=== PATIENT | male | born 1945 | race Caucasian/White ===

== ENCOUNTER 2022-08-27 14:05 | Inpatient (IN) | payer OTHER ==
[~2022-08-27] VITALS: Ht 185.4 cm; Wt 120.5 kg
[~2022-08-27 14:05] MED LIST: GABA300 PO; LASIX40 MG PO; Prinivil10 MG PO
[2022-08-27 14:50] LABS: BASOPHILS ABSOLUTE AUTO 0.08 K/mm3 (0.00-0.23); BASOPHILS PERCENT AUTO 1 % (0-2); EOSINOPHILS ABSOLUTE AUTO 0.85 K/mm3 (0.00-0.68); EOSINOPHILS PERCENT AUTO 6 % (0-6); Hematocrit 37.7 % (37.0-53.0); Hemoglobin 12.3 g/dL (13.5-17.5); IMMATURE GRAN ABSOLUTE AUTO 0.08 K/mm3 (0.00-0.10); IMMATURE GRAN PERCENT AUTO 1 % (0-1); LYMPHOCYTES ABSOLUTE AUTO 1.28 K/mm3 (0.84-5.20); LYMPHOCYTES PERCENT AUTO 9 % (21-46); MONOCYTES ABSOLUTE AUTO 1.08 K/mm3 (0.16-1.47); MONOCYTES PERCENT AUTO 7 % (4-13); Mean Corpuscular HGB 28.9 pg (26.0-34.0); Mean Corpuscular HGB Conc 32.6 g/dL (31.5-36.5); Mean Corpuscular Volume 89 fL (80-100); Mean Platelet Volume 9.2 fL (9.1-12.4); NEUTROPHILS ABSOLUTE AUTO 11.55 K/mm3 (1.96-9.15); NEUTROPHILS PERCENT AUTO 78 % (41-73); Platelet Count 298 K/mm3 (150-400); RDW Coefficient Variation 13.6 % (11.7-14.2); RDW Standard Deviation 44.4 fL (35.1-46.3); Red Blood Cell Count 4.25 M/mm3 (4.30-5.90); White Blood Cell Count 14.92 K/mm3 (4.00-11.30)
[2022-08-27 15:03] LABS: Albumin, Blood 3.3 g/dL (3.4-5.0); Albumin/Globulin Ratio 0.9 (0.8-1.8); Bilirubin, Total 0.6 mg/dL (0.1-1.0); Bun/Creatinine Ratio 17.6 (12.0-20.0); Calcium, Blood 8.7 mg/dL (8.5-10.1); Creatinine, Blood 1.02 mg/dL (0.60-1.20); Globulin, Blood 3.8 g/dL (2.2-4.0); Potassium, Blood 4.1 mmol/L (3.5-5.5); Total Protein, Blood 7.1 g/dL (6.4-8.2)
[2022-08-27 17:09] LABS: Influenza A, PCR NEGATIVE (NEGATIVE); Influenza B, PCR NEGATIVE (NEGATIVE); Resp Syncytial Virus, PCR NEGATIVE (NEGATIVE); SARS-Cov-2 (COVID-19) PCR, MMC NEGATIVE (NEGATIVE)
--- NOTE | 2022-08-27 22:54 | NUR ---
PATIENT IS A NEW ADMIT ON DAY SHIFT AT SHIFT CHANGE. AXOX 4 ON ROOM AIR. 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 LARGE SCROTUM SWELLING. DENIES CHEST PAIN, SOB, AND N/V. PUREWICK PLACE AND PATIENT CLEANED AND BED LINENS CHANGED. WCTM.
[2022-08-28 02:45] VITALS: BP 135/71
[2022-08-28 04:24] LABS: BASOPHILS ABSOLUTE AUTO 0.08 K/mm3 (0.00-0.23); BASOPHILS PERCENT AUTO 0 % (0-2); EOSINOPHILS ABSOLUTE AUTO 0.43 K/mm3 (0.00-0.68); EOSINOPHILS PERCENT AUTO 2 % (0-6); Hematocrit 35.1 % (37.0-53.0); Hemoglobin 11.7 g/dL (13.5-17.5); IMMATURE GRAN ABSOLUTE AUTO 0.18 K/mm3 (0.00-0.10); IMMATURE GRAN PERCENT AUTO 1 % (0-1); LYMPHOCYTES ABSOLUTE AUTO 1.27 K/mm3 (0.84-5.20); LYMPHOCYTES PERCENT AUTO 6 % (21-46); MONOCYTES ABSOLUTE AUTO 1.62 K/mm3 (0.16-1.47); MONOCYTES PERCENT AUTO 7 % (4-13); Mean Corpuscular HGB 28.8 pg (26.0-34.0); Mean Corpuscular HGB Conc 33.3 g/dL (31.5-36.5); Mean Corpuscular Volume 87 fL (80-100); Mean Platelet Volume 9.2 fL (9.1-12.4); NEUTROPHILS PERCENT AUTO 84 % (41-73); Platelet Count 285 K/mm3 (150-400); RDW Coefficient Variation 13.7 % (11.7-14.2); RDW Standard Deviation 43.4 fL (35.1-46.3); Red Blood Cell Count 4.06 M/mm3 (4.30-5.90); White Blood Cell Count 22.18 K/mm3 (4.00-11.30)
--- NOTE | 2022-08-28 04:24 | NUR ---
SHIFT SUMMARY PATIENT HAD NO ACUTE CHANGES. AXO X4 AND ONE ASSIST TO BSC. KAW LEAVING HEARING AIDS AT HOME. PUREWICK IN PLACE WITH SWELLING OF SCROTUM. UMBILICAL HERNIA. DENIES CHEST PAIN, SOB, AND N/V. VSS/AFEBRILE. CBG 95. COOPERATIVE WITH CARE. CALL LIGHT IN REACH. BED IN LOWEST POSITION. WILL CONTINUE TO MONITOR UNTIL DAY SHIFT NURSE ASSUMES CARE.
[2022-08-28 04:53] LABS: Bun/Creatinine Ratio 15.6 (12.0-20.0); Calcium, Blood 8.4 mg/dL (8.5-10.1); Creatinine, Blood 0.83 mg/dL (0.60-1.20); Potassium, Blood 3.5 mmol/L (3.5-5.5)
[2022-08-28 07:58] VITALS: BP 125/64
--- NOTE | 2022-08-28 09:16 | NUR ---
Echocardiogram completed.
[2022-08-28 16:04] VITALS: BP 125/70
--- NOTE | 2022-08-28 18:08 | NUR ---
SHIFT SUMMARY PATIENT IS ALERT AND ORIENTED X3. PATIENT HAS HAD NO ACUTE EVENTS THIS SHIFT. VITAL SIGNS REVIEWED. PUREWICK IN PLACE DUE TO SWELLING OF SCROTUM. PATIENT HAS NOT COMPLAINED OF PAIN, NAUSEA, SOB OR VOMITTING THIS SHIFT. PATIENT IS PLEASENT AND COOPERATIVE WITH CARE. BED IN LOCKED AND LOWEST POSITION. CALL LIGHT IN PLACE. WILL MONITOR UNTIL SHIFT CHANGE. WILL MONITOR UNTIL SHIFT CHANGE.
[2022-08-28 19:53] VITALS: BP 123/64
[2022-08-29 02:26] VITALS: BP 117/68
--- NOTE | 2022-08-29 05:23 | NUR ---
SUMMARY: NO ACUTE EVENTS OVERNIGHT. PATIENT EDUCATED TO CALL STAFF WHEN HE FEELS HIS BRIEF IS SOILED SO STAFF CAN CHANGE IMMEDIATELY TO PREVENT SKIN BREAKDOWN. PATIENT AOX4. VSS. IV ABX GIVEN. CALL LIGHT IN REACH.
--- NOTE | 2022-08-29 07:17 | NUR ---
ASSUMED CARE: PT RESTING QUIETLY IN BED DURING BEDSIDE REPORT. ON RA, NO TELE. NO ACUTE NEEDS AT THIS TIME.
[2022-08-29 07:50] VITALS: BP 119/65
[2022-08-29] MEDS ORDERED: ATOR20 PO (10:28)
[2022-08-29] MEDS ORDERED: DOXA4 PO (10:28)
[2022-08-29] MEDS ORDERED: AMOCLA600S (10:29)
--- NOTE | 2022-08-29 11:09 | NUR ---
PT GIVEN INSTRUCTIONS REGARDING FOLLOW UP APPOINTMENTS AND MEDICATIONS. [facility] MED[facility] PER [facility] REQUEST. IV DC'D WNL. PT TRANSPORTED OUT VIA WHEELCHAIR BY HOSPITAL STAFF. DENIED FURTHER QUESTIONS OR CONCERNS.
== END 2022-08-29 10:56 | disposition home or self-care (01) | DRG 727 ==
LOC: ER 14:05 → MEDS 17:33
PROVIDERS: Emergency Medicine; Physician Assistant; ADMIT Hospitalist
DX: N49.2 Inflammatory disorders of scrotum (principal); I50.33 Acute on chronic diastolic (congestive) heart failure; I11.0 Hypertensive heart disease with heart failure; Z20.822 Contact with and (suspected) exposure to COVID-19; Z28.21 Immunization not carried out because of patient refusal; N40.0 Benign prostatic hyperplasia without lower urinary tract symptoms; B35.1 Tinea unguium; K42.9 Umbilical hernia without obstruction or gangrene; J43.9 Emphysema, unspecified; M10.9 Gout, unspecified; N43.3 Hydrocele, unspecified; J84.10 Pulmonary fibrosis, unspecified; E78.5 Hyperlipidemia, unspecified; Z87.891 Personal history of nicotine dependence; Z79.899 Other long term (current) drug therapy
CPT/HCPCS: 0241U; 36415; 71046; 71260; 76870; 80048; 80053; 82947; 83036; 83605; 83690; 83880; 84484; 85025; 87040; 93005; 93010; 93306; 96365; 96366; 96375; 99285-25; A9270; J1650; J1815; J1940; J3370; J7050; Q9967

== ENCOUNTER 2022-11-17 12:14 | Inpatient (IN) | payer OTHER ==
[~2022-11-17] VITALS: Ht 185.4 cm; Wt 116.4 kg
[2022-11-17] VITALS (18 sets, daily range): BP systolic 77–132; BP diastolic 42–90
[~2022-11-17 12:14] MED LIST changes: +AMOCLA600S; +ATOR20 PO; +DOXA4 PO
[2022-11-17] MEDS ORDERED: Prinivil10 MG PO (12:48)
[2022-11-17] MEDS ORDERED: MULVITA PO (12:49)
[2022-11-17] MEDS ORDERED: OMEP20ER PO (12:49)
[2022-11-17] MEDS ORDERED: POTA10T PO (12:49)
[2022-11-17 13:08] LABS: Albumin, Blood 2.7 g/dL (3.4-5.0); Albumin/Globulin Ratio 0.9 (0.8-1.8); Bilirubin, Total 0.6 mg/dL (0.1-1.0); Calcium, Blood 8.6 mg/dL (8.5-10.1); Creatinine, Blood 1.16 mg/dL (0.60-1.20); Globulin, Blood 3.1 g/dL (2.2-4.0); Hematocrit 36.2 % (37.0-53.0); Hemoglobin 12.8 g/dL (13.5-17.5); Magnesium, Blood 2.1 mg/dL (1.6-2.4); Mean Corpuscular HGB 29.5 pg (26.0-34.0); Mean Corpuscular HGB Conc 35.4 g/dL (31.5-36.5); Mean Corpuscular Volume 83 fL (80-100); Mean Platelet Volume 10.6 fL (9.1-12.4); Platelet Count 100 K/mm3 (150-400); Potassium, Blood 4.3 mmol/L (3.5-5.5); RDW Coefficient Variation 14.1 % (11.7-14.2); Red Blood Cell Count 4.34 M/mm3 (4.30-5.90); Total Protein, Blood 5.8 g/dL (6.4-8.2); White Blood Cell Count 2.79 K/mm3 (4.00-11.30)
[2022-11-17 13:56] LABS: BAND PERCENT MAN 9 % (0-8); BASOPHILS PERCENT MAN 0 % (0-2); EOSINOPHILS ABSOLUTE MAN 0.05 K/mm3 (0.00-0.68); EOSINOPHILS PERCENT MAN 2 % (0-6); LYMPHOCYTES % ATYPICAL MANUAL 1 % (0-0); LYMPHOCYTES ABSOLUTE MAN 0.92 K/mm3 (0.84-5.20); LYMPHOCYTES PERCENT MAN 32 % (21-46); METAMYELOCYTE ABSOLUTE MAN 0.02 K/mm3 (0.00-0.00); METAMYELOCYTE PERCENT MAN 1 % (0-0); MONOCYTES ABSOLUTE MAN 0.11 K/mm3 (0.16-1.47); MONOCYTES PERCENT MAN 4 % (4-13); NEUTROPHILS ABSOLUTE MAN 1.67 K/mm3 (1.96-9.15); SEG NEUTROPHILS PERCENT MAN 51 % (41-73); TOTAL CELLS COUNTED 100
[2022-11-17 14:17] LABS: Adenovirus Not Detected (NOT DETECT); Bordetella pertussis Not Detected (NOT DETECT); Chlamydophila pneumoniae Not Detected (NOT DETECT); Coronavirus 229E Not Detected (NOT DETECT); Coronavirus HKU1 Not Detected (NOT DETECT); Coronavirus NL63 Not Detected (NOT DETECT); Coronavirus OC43 Not Detected (NOT DETECT); Human Metapneumovirus Not Detected (NOT DETECT); Human Rhinovirus/Enterovirus Not Detected (NOT DETECT); Influenza A/2009-H1 Not Detected (NOT DETECT); Influenza A/H1 Not Detected (NOT DETECT); Influenza A/H3 Not Detected (NOT DETECT); Influenza B Not Detected (NOT DETECT); Mycoplasma pneumoniae Not Detected (NOT DETECT); Parainfluenza Virus 1 Not Detected (NOT DETECT); Parainfluenza Virus 2 Not Detected (NOT DETECT); Parainfluenza Virus 3 Not Detected (NOT DETECT); Parainfluenza Virus 4 Not Detected (NOT DETECT); Respiratory Syncytial Virus Not Detected (NOT DETECT); SARS-Cov-2 (COVID-19), BioFire Not Detected (NOT DETECT)
--- NOTE | 2022-11-17 16:34 | NUR ---
ADMISSION: Pt arrived to ICU with levophed running through right forearm PIV at 7. Pt alert and oriented x 4; ROSADO. Reports mild persistant lower abdominal pain that has been present for that last month.
--- NOTE | 2022-11-17 19:47 | NUR ---
ASSUMED CARE PT IS A&O X4; SPO2 >92% ON RA; MAP >65 W/ LEVOPHED TITRATING (SEE FLOWSHEET); HR VARIABLE IN THE 90-100'S. PT DENIES SOB OR NAUSEA; STATES HE HAS SOME MINOR CP WHEN HE ATTEMPTS TO BREATHE REALLY DEEP, WILL CONTINUE TO MONITOR. PT WAS ABLE TO GET OUT OF CHAIR INTO BED W/ NO ASSISTANCE; STATED HE FELT A LITTLE UNSTEADY, BUT OTHERWISE OK. ABDOMINAL PAIN IS STILL PRESENT.
[2022-11-18] VITALS (63 sets, daily range): BP systolic 77–123; BP diastolic 32–102
[2022-11-18 03:41] LABS: BASOPHILS ABSOLUTE AUTO 0.04 K/mm3 (0.00-0.23); BASOPHILS PERCENT AUTO 1 % (0-2); EOSINOPHILS ABSOLUTE AUTO 0.09 K/mm3 (0.00-0.68); EOSINOPHILS PERCENT AUTO 3 % (0-6); Hemoglobin 12.8 g/dL (13.5-17.5); IMMATURE GRAN PERCENT AUTO 3 % (0-1); LYMPHOCYTES ABSOLUTE AUTO 1.07 K/mm3 (0.84-5.20); LYMPHOCYTES PERCENT AUTO 36 % (21-46); MONOCYTES ABSOLUTE AUTO 0.38 K/mm3 (0.16-1.47); MONOCYTES PERCENT AUTO 13 % (4-13); Mean Corpuscular HGB 29.2 pg (26.0-34.0); Mean Corpuscular HGB Conc 34.6 g/dL (31.5-36.5); Mean Corpuscular Volume 84 fL (80-100); Mean Platelet Volume 11.1 fL (9.1-12.4); NEUTROPHILS ABSOLUTE AUTO 1.33 K/mm3 (1.96-9.15); NEUTROPHILS PERCENT AUTO 44 % (41-73); Platelet Count 110 K/mm3 (150-400); RDW Standard Deviation 43.7 fL (35.1-46.3); Red Blood Cell Count 4.39 M/mm3 (4.30-5.90); White Blood Cell Count 3.01 K/mm3 (4.00-11.30)
[2022-11-18 03:59] LABS: Albumin, Blood 2.5 g/dL (3.4-5.0); Albumin/Globulin Ratio 0.8 (0.8-1.8); Bilirubin, Total 0.5 mg/dL (0.1-1.0); Bun/Creatinine Ratio 19.4 (12.0-20.0); Calcium, Blood 8.5 mg/dL (8.5-10.1); Creatinine, Blood 1.03 mg/dL (0.60-1.20); Globulin, Blood 3.2 g/dL (2.2-4.0); Potassium, Blood 4.1 mmol/L (3.5-5.5); Total Protein, Blood 5.7 g/dL (6.4-8.2)
--- NOTE | 2022-11-18 05:08 | NUR ---
SHIFT SUMMARY PT IS A&O X4; MAP >65; SPO2 >92% ON CPAP (FOR MOST OF NIGHT); HR IN THE 80-90'S. PT DENIES CP, SOB, OR NAUSEA. WORE CPAP FOR MOST OF NIGHT W/ INTERMITTENT DESATURATIONS INTO THE 80'S FOR A FEW SECONDS AT A TIME. 2L BLEED IN ON CPAP. PT ON RA WHILE AWAKE. PT DENIES CP, SOB, OR NAUSEA AT THIS TIME. STATES ABDOMINAL PAIN HAS GOTTEN BETTER T/O NIGHT. PT REMAINS ON LEVOPHED TO MAINTAIN >65 MAP. PT RESTED QUIETLY T/O MOST OF NIGHT. NO ACUTE EVENTS.
--- NOTE | 2022-11-18 07:00 | NUR ---
ASSUME CARE: I have assumed care of this patient.
[2022-11-18 10:43] LABS: C-REACTIVE PROTEIN, EXT RANGE 4.41 mg/dL (0.000-0.300)
--- NOTE | 2022-11-18 14:30 | NUR ---
SHIFT/TRANSFER SUMMERY: Pt started on midodrine this morning and levophed successfully titrated off. MAPs have been stable >65 throughout the day. Pt using urinal independently. BM this morning on bedside commode. Pt transfers with standby assist. Report given to BEAD MACHINE OPERATOR. Pt transferred to PCU room by ENROLLMENT MANAGEMENT MANAGER via wheelchair. Spouse called for update but no answer.
--- NOTE | 2022-11-18 14:58 | NUR ---
TRANSFER UPDATE REPORT RECIEVED FROM DIRECTOR OF PLACEMENTTREE BROWN AT 1419. PT ARRIVED TO PCU AT 1430 VIA WHEELCHAIR AND ON RA. PT ABLE TO TRANSFER FROM WHEELCHAIR TO HOSPITAL BED WITH SOME ASSISTANCE FROM STAFF, UNSTEADY ON HIS FEET. PT A/OX4 UPON ARRIVAL TO UNIT. NO REPORT OF CHEST PAIN/PRESSURE. NO REPORT OF SOB/DYSPNEA. PT DOES REPORT "ACID BURN IN MY ESOPHAGUS WHEN I TAKE DEEP BREATHS." PT STATED THAT IT IS BECAUSE OF HIS "GERD." VSS AT TIME OF ARRIVAL. PT ORIENTED TO ROOM AND CALL LIGHT WITHIN REACH. BED IN LOWEST POSITION, BED LOCKED. THS RN ATTEMPTED TO CONTACT PT'S TO UPDATE THAT THE PT WAS TRANSFERED TO PCU, NO ANSWER.
--- NOTE | 2022-11-18 17:45 | NUR ---
SHIFT SUMMARY PT A/OX4 AND COOPERATIVE OF CARE. VSS SINCE ARRIVAL TO UNIT, NO REPORT OF CHEST PAIN/PRESSURE SINCE ARRIVAL TO UNIT. PT UPDATED ON TRANSFER TO PCU. PT CALLING APPROPIATELY AND USING URINAL WHILE IN BED. PT REPORTS "ACID BURNING" OF ESOPHAGUS. PT SLEPT FOR BRIEF PERIOD, SATS DROPPED TO 81% DURING APNEIC PERIOD. PT PLACE ON CPAP, SATS STABLE.
[2022-11-19 04:10] LABS: Hematocrit 40.1 % (37.0-53.0); Hemoglobin 13.7 g/dL (13.5-17.5); Mean Corpuscular HGB 28.7 pg (26.0-34.0); Mean Corpuscular HGB Conc 34.2 g/dL (31.5-36.5); Mean Corpuscular Volume 84 fL (80-100); Mean Platelet Volume 10.8 fL (9.1-12.4); Platelet Count 122 K/mm3 (150-400); RDW Coefficient Variation 14.1 % (11.7-14.2); RDW Standard Deviation 43.5 fL (35.1-46.3); Red Blood Cell Count 4.77 M/mm3 (4.30-5.90)
[2022-11-19 04:35] LABS: Albumin, Blood 2.6 g/dL (3.4-5.0); Albumin/Globulin Ratio 0.8 (0.8-1.8); Bilirubin, Total 0.5 mg/dL (0.1-1.0); Bun/Creatinine Ratio 17.9 (12.0-20.0); Calcium, Blood 8.4 mg/dL (8.5-10.1); Creatinine, Blood 0.95 mg/dL (0.60-1.20); Globulin, Blood 3.4 g/dL (2.2-4.0); Potassium, Blood 3.7 mmol/L (3.5-5.5)
--- NOTE | 2022-11-19 05:14 | NUR ---
Assumed care of patient at 1900, A/Ox4. Cooperative with care. SAXMAN. Maintains over 95% on RA while awake, and CPAP with 2L bleed while asleep - however still has brief desaturations into low 80's but recovers quickly. LS clear on top and dim at bases. Afib on tele 90's. Denies CP/pressure, VSS. LLE with 1+ pitting edema and RLE with trace. Mild abdominal distention that is tender to the touch. Bowel tones noted t/o 4 quadrants. Patient wore CPAP most of the night and had no complaints. No acute changes. Will report to dayshift RN.
[2022-11-19 08:00] VITALS: BP 109/78
--- NOTE | 2022-11-19 08:22 | NUR ---
AM NOTE Pt alert, oriented x4; calm and cooperative with care. Pt resting in bed, on side of bed for breakfast this am. Pt denies pain, chest pain/pressure, nausea, dizziness and numb/tingling. Spo2 >90% on ra while awake, pt reports sob with movement. Tele afib 100-120's while moving, bp stable with midodrine onboard. Abd firm, tender with hypoactive bt. Edema noted to ble, 1+. Other vss. No other acute chagnes noted. Will continue to monitor.
[2022-11-19 11:49] VITALS: BP 120/87
[2022-11-19] MEDS ORDERED: BUME2 PO (12:09)
[2022-11-19] MEDS ORDERED: MIDO5 PO (12:10)
[2022-11-19] MEDS ORDERED: POTA10T PO (12:11)
[2022-11-19] MEDS ORDERED: CEFU500T30 PO (13:03)
[2022-11-19] MEDS ORDERED: VISBIOME 112.51 EACH PO (13:05)
[2022-11-19] MEDS ORDERED: FAMO20 PO (13:06)
[2022-11-19 13:43] VITALS: BP 116/98
--- NOTE | 2022-11-19 14:25 | NUR ---
Discharge Summary No acute changes t/o shift. Pt expressing desire to go home. Discharge orders with medications. Fax to [facility]. Pt and spouse educated on discharge instructions, follow up appointments and medications changes. Educated pt and spouse to remove the discontinued medications away from the one he will be taking. Discussed tracking BP and HR, bringing into dr office for appointment. Pt left room via wheelchair at approx 1402.
== END 2022-11-19 14:03 | disposition home or self-care (01) | DRG 291 ==
LOC: ER 12:14 → ICUE 15:20 → PCU 15:20 → ICUE 16:32 → PCU 11-18 14:33
PROVIDERS: Student in an Organized Health Care Education/Training Program; ADMIT Internal Medicine
PROC: 3E033XZ Introduction of Vasopressor into Peripheral Vein, Percutaneous Approach (ICD-10-PCS; principal; 2022-11-17)
DX: I11.0 Hypertensive heart disease with heart failure (principal); I50.31 Acute diastolic (congestive) heart failure; J96.91 Respiratory failure, unspecified with hypoxia; N17.9 Acute kidney failure, unspecified; E87.1 Hypo-osmolality and hyponatremia; I95.9 Hypotension, unspecified; I48.91 Unspecified atrial fibrillation; M10.9 Gout, unspecified; N40.0 Benign prostatic hyperplasia without lower urinary tract symptoms; F10.90 Alcohol use, unspecified, uncomplicated; Z20.822 Contact with and (suspected) exposure to COVID-19; R59.0 Localized enlarged lymph nodes; I27.20 Pulmonary hypertension, unspecified; J84.10 Pulmonary fibrosis, unspecified; E11.40 Type 2 diabetes mellitus with diabetic neuropathy, unspecified; K59.00 Constipation, unspecified; J20.9 Acute bronchitis, unspecified; K42.9 Umbilical hernia without obstruction or gangrene; K29.70 Gastritis, unspecified, without bleeding; I50.810 Right heart failure, unspecified; B35.1 Tinea unguium; Z79.2 Long term (current) use of antibiotics; Z98.890 Other specified postprocedural states; Z90.49 Acquired absence of other specified parts of digestive tract; Z79.4 Long term (current) use of insulin; Z87.891 Personal history of nicotine dependence; Z79.899 Other long term (current) drug therapy
CPT/HCPCS: 0202U; 36415; 71260; 74176; 80053; 82947; 83605; 83690; 83735; 83880; 84145; 84484; 85025; 85027; 85651; 86140; 87081; 87430; 93005; 93010; 93308; 93321; 94660; 94762; 96365; 96366; 96368; 96375; 99285-25; A9270; C9113; J0692; J0696; J1650; J1940; J7050; J7060; Q9967

== ENCOUNTER 2024-01-21 21:03 | Emergency (ER) | payer OTHER ==
[~2024-01-21] VITALS: Ht 185.4 cm; Wt 107.0 kg
[~2024-01-21 21:03] MED LIST changes: +ACET500 PO; +AEREDS PO; +ASPI81CH PO; +BUME2 PO; +CARAFATE1 GM PO; +CEFU500T30 PO; +ELIQUIS5 M2 PO; +FAMO20 PO; +FURO40 PO; +GABA300T24 PO; +Lopressor 50 mg50 MG PO; +MIDO5 PO; +MULVITA PO; +OMEP20ER PO; +OXYC5 PO; +PANT40 PO; +POTA10T PO; +VISBIOME 112.51 EACH PO; +VITA PO; +VITAMIN A PO; +VITAMIN D310 MC4 PO; +ZINC PO
[2024-01-21 21:37] LABS: BASOPHILS ABSOLUTE AUTO 0.08 K/mm3 (0.00-0.23); BASOPHILS PERCENT AUTO 1 % (0-2); EOSINOPHILS ABSOLUTE AUTO 0.72 K/mm3 (0.00-0.68); EOSINOPHILS PERCENT AUTO 7 % (0-6); Hematocrit 29.2 % (37.0-53.0); Hemoglobin 9.2 g/dL (13.5-17.5); IMMATURE GRAN ABSOLUTE AUTO 0.03 K/mm3 (0.00-0.10); IMMATURE GRAN PERCENT AUTO 0 % (0-1); LYMPHOCYTES ABSOLUTE AUTO 1.84 K/mm3 (0.84-5.20); LYMPHOCYTES PERCENT AUTO 18 % (21-46); MONOCYTES ABSOLUTE AUTO 0.65 K/mm3 (0.16-1.47); MONOCYTES PERCENT AUTO 6 % (4-13); Mean Corpuscular HGB Conc 31.5 g/dL (31.5-36.5); Mean Corpuscular Volume 83 fL (80-100); Mean Platelet Volume 8.9 fL (9.1-12.4); NEUTROPHILS ABSOLUTE AUTO 6.78 K/mm3 (1.96-9.15); NEUTROPHILS PERCENT AUTO 67 % (41-73); Platelet Count 430 K/mm3 (150-400); RDW Coefficient Variation 16.9 % (11.7-14.2); RDW Standard Deviation 50.4 fL (35.1-46.3); Red Blood Cell Count 3.54 M/mm3 (4.30-5.90)
[2024-01-21 21:54] LABS: Albumin, Blood 3.1 g/dL (3.4-5.0); Albumin/Globulin Ratio 0.9 (0.8-1.8); Bilirubin, Total 0.7 mg/dL (0.1-1.0); Bun/Creatinine Ratio 14.1 (12.0-20.0); Calcium, Blood 8.9 mg/dL (8.5-10.1); Globulin, Blood 3.4 g/dL (2.2-4.0); Potassium, Blood 3.9 mmol/L (3.5-5.5); Total Protein, Blood 6.5 g/dL (6.4-8.2)
[2024-01-21] MEDS ORDERED: FentaNYL Citrate 50 MCG/ML 2 ML Injection IV PRN (23:15)
[2024-01-21] MEDS ORDERED: NS 1,000 ML IV SCH (23:55)
[2024-01-22 02:45] VITALS: BP 132/90
[2024-01-22 03:11] LABS: Source, Urine Clean Catch
[2024-01-22 03:13] LABS: Bilirubin, Urine Neg (Neg); Blood, Urine Neg (Neg); Glucose Qualitative, Urine Neg (Neg); Ketones, Urine Neg (Neg); Leukocyte Esterase, Urine 1+ (Neg); Nitrite, Urine Neg (Neg); Protein, Urine 2+ (Neg); Urobilinogen, Urine NORM (Normal)
[2024-01-22 03:25] LABS: Appearance, Urine Clear (Clear); Bacteria Rare /hpf; Color, Urine Yellow (P-Yellow); Red Blood Cells, Urine Not Seen /hpf (0-2); Squamous Epithelial Cells Few /hpf (Few); White Blood Cells, Urine 0-2 /hpf (0-5)
== END 2024-01-22 05:20 | disposition home or self-care (01) ==
LOC: ER 21:03
PROVIDERS: Physician Assistant
DX: K42.9 Umbilical hernia without obstruction or gangrene (principal); E86.0 Dehydration; I11.0 Hypertensive heart disease with heart failure; I50.9 Heart failure, unspecified; Z79.899 Other long term (current) drug therapy
CPT/HCPCS: 51798; 74177; 80053; 81001; 83605; 83690; 84484; 85025; 93005; 93010; 96374-59; 99284-25; J3010; J7030; Q9967

== ENCOUNTER 2024-01-25 11:58 | Inpatient (IN) | payer OTHER ==
[~2024-01-25] VITALS: Ht 185.4 cm; Wt 99.9 kg
[2024-01-25] MEDS ORDERED: Morphine Sulfate 4 MG/1 ML Injection IV ONE (12:35)
[2024-01-25] MEDS ORDERED: Ondansetron HCl 2 MG / ML 2ML Vial IV ONE (12:35)
[2024-01-25 12:42] LABS: BASOPHILS ABSOLUTE AUTO 0.03 K/mm3 (0.00-0.23); BASOPHILS PERCENT AUTO 0 % (0-2); EOSINOPHILS ABSOLUTE AUTO 0.12 K/mm3 (0.00-0.68); EOSINOPHILS PERCENT AUTO 1 % (0-6); Hematocrit 33.7 % (37.0-53.0); Hemoglobin 10.5 g/dL (13.5-17.5); IMMATURE GRAN ABSOLUTE AUTO 0.02 K/mm3 (0.00-0.10); IMMATURE GRAN PERCENT AUTO 0 % (0-1); LYMPHOCYTES ABSOLUTE AUTO 1.82 K/mm3 (0.84-5.20); LYMPHOCYTES PERCENT AUTO 20 % (21-46); MONOCYTES ABSOLUTE AUTO 0.97 K/mm3 (0.16-1.47); MONOCYTES PERCENT AUTO 11 % (4-13); Mean Corpuscular HGB 25.5 pg (26.0-34.0); Mean Corpuscular HGB Conc 31.2 g/dL (31.5-36.5); Mean Corpuscular Volume 82 fL (80-100); NEUTROPHILS ABSOLUTE AUTO 6.18 K/mm3 (1.96-9.15); NEUTROPHILS PERCENT AUTO 68 % (41-73); Platelet Count 429 K/mm3 (150-400); RDW Coefficient Variation 16.5 % (11.7-14.2); RDW Standard Deviation 49.5 fL (35.1-46.3); Red Blood Cell Count 4.11 M/mm3 (4.30-5.90); White Blood Cell Count 9.14 K/mm3 (4.00-11.30)
[2024-01-25 13:02] LABS: Albumin, Blood 3.1 g/dL (3.4-5.0); Albumin/Globulin Ratio 0.9 (0.8-1.8); Bilirubin, Total 0.8 mg/dL (0.1-1.0); Bun/Creatinine Ratio 15.1 (12.0-20.0); Creatinine, Blood 0.73 mg/dL (0.60-1.20); Globulin, Blood 3.5 g/dL (2.2-4.0); Potassium, Blood 3.6 mmol/L (3.5-5.5); Total Protein, Blood 6.6 g/dL (6.4-8.2)
[2024-01-25 14:30] LABS: International Normalized Ratio 1.06; Prothrombin Time Results 11.3 Sec (9.7-11.5)
[2024-01-25] MEDS ORDERED: Acetaminophen 325 MG TABLET PO PRN (16:25)
[2024-01-25] MEDS ORDERED: FentaNYL Citrate 50 MCG/ML 2 ML Injection IV PRN (16:30)
[2024-01-25] MEDS ORDERED: Pantoprazole Sodium 40 MG Injection IV SCH (16:30)
[2024-01-25] MEDS ORDERED: Ondansetron HCl 2 MG / ML 2ML Vial IV PRN (16:30)
[2024-01-25] MEDS ORDERED: Sucralfate 1000MG / 10ML UD BTL PO SCH (16:30)
[2024-01-25 19:02] VITALS: BP 100/65
[2024-01-25] MEDS ORDERED: Metoprolol Tartrate 50 MG Tab PO SCH (21:00)
[2024-01-26 03:58] VITALS: BP 88/65
[2024-01-26 05:10] LABS: BASOPHILS ABSOLUTE AUTO 0.05 K/mm3 (0.00-0.23); BASOPHILS PERCENT AUTO 1 % (0-2); EOSINOPHILS ABSOLUTE AUTO 0.52 K/mm3 (0.00-0.68); EOSINOPHILS PERCENT AUTO 7 % (0-6); Hematocrit 29.7 % (37.0-53.0); Hemoglobin 9.3 g/dL (13.5-17.5); IMMATURE GRAN ABSOLUTE AUTO 0.02 K/mm3 (0.00-0.10); IMMATURE GRAN PERCENT AUTO 0 % (0-1); LYMPHOCYTES PERCENT AUTO 26 % (21-46); MONOCYTES ABSOLUTE AUTO 0.78 K/mm3 (0.16-1.47); MONOCYTES PERCENT AUTO 11 % (4-13); Mean Corpuscular HGB 25.5 pg (26.0-34.0); Mean Corpuscular HGB Conc 31.3 g/dL (31.5-36.5); Mean Corpuscular Volume 82 fL (80-100); Mean Platelet Volume 9.1 fL (9.1-12.4); NEUTROPHILS ABSOLUTE AUTO 3.81 K/mm3 (1.96-9.15); NEUTROPHILS PERCENT AUTO 55 % (41-73); Platelet Count 346 K/mm3 (150-400); RDW Coefficient Variation 16.4 % (11.7-14.2); RDW Standard Deviation 48.5 fL (35.1-46.3); Red Blood Cell Count 3.64 M/mm3 (4.30-5.90); White Blood Cell Count 6.98 K/mm3 (4.00-11.30)
--- NOTE | 2024-01-26 05:27 | NUR ---
PATIENT EXHAUSTED TONIGHT, SLEPT WELL WITH OUR CPAP ON, ABD PAIN NEARLY GONE. HAS NOT BEEN UP TO BR, NOR VOIDED.SCD'S TO BLE. TELE A FIB BP HELD AT 2100 D/T LOW BP. BP EVEN LOWER AT 0400.
[2024-01-26 05:48] LABS: Bun/Creatinine Ratio 14.2 (12.0-20.0); Calcium, Blood 8.2 mg/dL (8.5-10.1); Creatinine, Blood 0.77 mg/dL (0.60-1.20); Potassium, Blood 3.5 mmol/L (3.5-5.5)
[2024-01-26 07:24] VITALS: BP 98/64
[2024-01-26 08:38] VITALS: BP 105/77
[2024-01-26] MEDS ORDERED: Midodrine 5 MG Tab PO ONE (08:45)
--- NOTE | 2024-01-26 08:55 | NUR ---
PHYSICIAN NOTIFIED CALL FROM TELE THAT PATIENT IS IN AFIB SUSTAINING 130-140'S, WITH HR HIGH 160'S. VS RECHECKED DUE TO LOW BP THIS AM, BP NOW 105/77. DR. GARZA NOTIFIED. ORDES TO GIVE METOPROLOL WITH ONE TIME DOSE OF 5MG PO MIDODRINE. PRIMARY RN NOTIFIED OF ORDERS.
--- NOTE | 2024-01-26 09:51 | NUR ---
RECONCILED MEDS. UPDATED
[2024-01-26] MEDS ORDERED: Atorvastatin 10 MG Tab PO SCH (10:58)
[2024-01-26] MEDS ORDERED: Furosemide 40 MG Tab PO SCH (11:00)
[2024-01-26] MEDS ORDERED: Midodrine 5 MG Tab PO SCH (11:01)
[2024-01-26] MEDS ORDERED: Potassium Chloride 10 Meq Tablet SA PO SCH (11:01)
[2024-01-26 11:21] VITALS: BP 96/73
--- NOTE | 2024-01-26 11:50 | NUR ---
PER DISCUSSION WITH DR GARZA. HOLD LASIX R/T BP. GIVE MIDODRINE. 96/72 BP
[2024-01-26] MEDS ORDERED: Gabapentin 400 MG Cap PO SCH (14:00)
--- NOTE | 2024-01-26 14:52 | NUR ---
PT STATES ABD WORSE PAIN. STILL 3 HRS FROM LAST DOSE FENTANYL. GAVE TYLENOL. SPOKE TO DR GARZA. ORDERS FOR FENTANYL 25MCG X1. NOW. DONE
[2024-01-26] MEDS ORDERED: FentaNYL Citrate 50 MCG/ML 2 ML Injection IV ONE (14:55)
--- NOTE | 2024-01-26 15:00 | NUR ---
PT STATES HAS EMESIS ABOUT 200 CC SINCE LUNCHTIME. REPORT TO
[2024-01-26 15:10] VITALS: BP 111/85
--- NOTE | 2024-01-26 18:07 | NUR ---
PT PLEASANT TODAY. IN TO VISIT TODAY. PATIENT STATES INCREASED PAIN TODAY. GOT EXTRA DOSE FENTANYL TODAY. CALLED DR GONGORA. HE IN TO SEE PT THIS BOBBY. HERNIA IS PROTRUDING OUT SOME, THAT APPERAS TO BE CENTER OF PAIN. NO NG TUBE NEEDED AT THIS TIME PER DR GONGORA. IF PAIN BECOMES INOLERABLE THIS BOBBY. COULD TO EMERGENT SURGERY, IF NOT, PLAN FOR TOMORROW. DR ORDER CT ABD AND MAKE NPO. UPDATED DR GARZA. NO OTHER CONCERNS NOTED. BED IN LOW POSITION, CALL LITE IN REACH. CALLS APPROP
--- NOTE | 2024-01-26 18:14 | NUR ---
PT DID HAVE ABOUT 300 CC EMESIS TODAY
[2024-01-26 20:11] VITALS: BP 108/79
[2024-01-26] MEDS ORDERED: FentaNYL Citrate 50 MCG/ML 2 ML Injection IV PRN (21:35)
[2024-01-27 02:22] VITALS: BP 107/70
--- NOTE | 2024-01-27 04:29 | NUR ---
SHIFT SUMMARY PT IS PLEASANT, A&O X4, COOPERATIVE WITH CARE. PT CONTINUES NPO DURING THIS SHIFT. PT NAUSEOUS AND VOMITING, APPROXIMATELY 350MLS BROWNISH EMESIS AT HS.PT CONTINUING TO HAVE NAUSEA. PRN ZOFRAN IV NOT EFFECTIVE. C/O 10/10 ABDOMINAL PAIN, PRN FETANYL ADMINISTERED 25MCG IV ORDERED. PER PT REPORT, NOT EFFECTIVE FOR THE ABDOMINAL PAIN. ACTIVE BOWEL TONES ONLY ON LLQ. NOTED SEVERE ABDOMINAL DISTENSION.NOTED PT VERY UNCOMFORTABLE LAYING IN BED. PT TAKEN TO CT AT HS. CRITICAL RESULTS CT SCAN CALLED TO PAUL, CUFF SETTER LOCKSTITCH HOSPITALIST. ORDER RECEIVED FOR NG-TUBE, PLACED W/O NEEDING AN ADJUSTMENT AFTER PLACEMENT VERIFIED/ X-RAY. PT IMMEDIATELY FEELING RELIEF AFTER NG-TUBE IN KACE AND SUCTION STARTED. 800MLS+ OUTPUT. PT CONTINUING TO HAVE ABDOMINAL PAIN 02/18. THIS OB/GYN DOCTOR CALLED ON-CALL HOSPITALIST MACIEJ. NEW ORDER: FETANYL 25-50MCG Q2HRS. FETANYL ADMINISTERED X3 DURING THIS SHIFT, PT REPORTS 50MCG IV X1 WAS EFFECTIVE, PAIN LEVEL FROM 6/10 TO 4/10. AM ZOFRAN PRN DOSE EFFECTIVE FOR NAUSEA. NO VOMIT AFTER NG- TUBE IN PLACE. NG TUBE CONTINUES TO HAVE AN OUTPUT OF BROWINSH/JORGE COLOR FLUID. TOTAL OUTPUT THIS SHIFT: 1800MLS. TELE: A-FIB 1205-120'S, HS PO MEDS ADMINISTERED ORDERED. O2 RA, CONTINUOUS PULSE OX 96%-99%. STEPHEN SPENDING THE NIGHT BY THE BEDSIDE. PT IS AWAITING FOR CT SCAN RESULTS/TALK TO THE DR. BED AT THE LOWEST POSITION, [id number] WITH PILLOWS FLOATING COCCYX AREA. CALL LIGHT WITHIN REACH.
--- NOTE | 2024-01-27 05:26 | NUR ---
TOTAL OUTPUT DURING NOC SHIFT/NG-TUBE: 1950ml.
[2024-01-27] MEDS ORDERED: Benzocaine Topical Anesthetic Spray 60GM TOP PRN (05:45)
[2024-01-27 06:06] LABS: BASOPHILS ABSOLUTE AUTO 0.04 K/mm3 (0.00-0.23); BASOPHILS PERCENT AUTO 1 % (0-2); EOSINOPHILS ABSOLUTE AUTO 0.31 K/mm3 (0.00-0.68); EOSINOPHILS PERCENT AUTO 4 % (0-6); Hematocrit 29.5 % (37.0-53.0); Hemoglobin 9.4 g/dL (13.5-17.5); IMMATURE GRAN ABSOLUTE AUTO 0.02 K/mm3 (0.00-0.10); IMMATURE GRAN PERCENT AUTO 0 % (0-1); LYMPHOCYTES ABSOLUTE AUTO 1.65 K/mm3 (0.84-5.20); LYMPHOCYTES PERCENT AUTO 21 % (21-46); MONOCYTES ABSOLUTE AUTO 1.03 K/mm3 (0.16-1.47); MONOCYTES PERCENT AUTO 13 % (4-13); Mean Corpuscular HGB 25.4 pg (26.0-34.0); Mean Corpuscular HGB Conc 31.9 g/dL (31.5-36.5); Mean Corpuscular Volume 80 fL (80-100); Mean Platelet Volume 9.5 fL (9.1-12.4); NEUTROPHILS ABSOLUTE AUTO 4.78 K/mm3 (1.96-9.15); NEUTROPHILS PERCENT AUTO 61 % (41-73); Platelet Count 354 K/mm3 (150-400); RDW Coefficient Variation 16.2 % (11.7-14.2); White Blood Cell Count 7.83 K/mm3 (4.00-11.30)
[2024-01-27 06:43] LABS: Bun/Creatinine Ratio 15.8 (12.0-20.0); Calcium, Blood 8.2 mg/dL (8.5-10.1); Creatinine, Blood 0.76 mg/dL (0.60-1.20); Potassium, Blood 3.3 mmol/L (3.5-5.5)
[2024-01-27 07:22] VITALS: BP 104/69
[2024-01-27] MEDS ORDERED: Multivitamins 1 Tab PO SCH (09:00)
[2024-01-27] MEDS ORDERED: Cholecalciferol 1000 Unit Tablet (=25MCG) PO SCH (09:00)
[2024-01-27] MEDS ORDERED: Potassium Chloride 40 MEQ in NS 250 ML IV ONE (12:50)
[2024-01-27] MEDS ORDERED: NS 250 ML IV PRN (14:30)
[2024-01-27 17:25] VITALS: BP 123/69
[2024-01-27] MEDS ORDERED: Metoprolol Tartrate 1 MG/ML 5 ML VIAL IV SCH (18:00)
[2024-01-27 19:01] VITALS: BP 97/72
--- NOTE | 2024-01-27 19:02 | NUR ---
SHIFT SUMMARY: PT IS A/O X 4, SBA TO BS, PLEASANT AND COOPERATIVE. PT MAINTAINED NG TUBE THROUGHOUT THE DAY. HAD 300 ML OF DARK GREEN LIQUID OUTPUT. PT DENIED ABD PAIN THROUGHOUT THE DAY. HE DID HAVE ONE BM TODAY. PT HAD BRIGHT RED SMEAR ON TP BUT REPORTED HE HAS HEMORRHOIDS. NO BLOOD IN STOOL OBSERVED. PT GIVEN METOPROLOL VIA IV. HR INITIALLY LOWERED TO 100 BUT DID NOT MAINTAIN AND WENT BACK UP TO THE 110-120 RANGE. PT DENIES CP/PRESSURE AND STATED HIS NORMAL HR AT HOME RUNS ABOUT 106.
[2024-01-27] MEDS ORDERED: D5W-1/2NS 1,000 ML IV SCH (19:45)
[2024-01-27] MEDS ORDERED: Benzocaine Oral Spray 0.5ML UD MT PRN (21:30)
--- NOTE | 2024-01-27 21:31 | NUR ---
PT C/O SORE THROAT D/T NG TUBE. THIS JIGSAW OPERATOR CALLED [facility] WING, ON-CALL HOSPITALIST. NEW ORDER: HURRICAINE SPRAY 1-2 SPRAYS Q4HRS PRN FOR SORE THROAT.
--- NOTE | 2024-01-28 02:57 | NUR ---
SHIFT SUMMARY PT IS NPO D/T NG-TUBE. IV LR @60MLS/HR INFUSING ORDERED.PT DENIES PAIN, N/V. PT USING MOUTH SWABS, AND X1 "HURRICANE"SPRAY FOR C/O SORE THROAT. TELE: A-FIB @105. NO ACUTE EVENTS DURING THIS SHIFT, BED AT THE LOWEST POSITION, CALL LIGHT WITHIN REACH.
[2024-01-28 04:01] VITALS: BP 113/68
[2024-01-28 05:15] LABS: Hematocrit 28.7 % (37.0-53.0); Hemoglobin 8.8 g/dL (13.5-17.5); Mean Corpuscular HGB 24.9 pg (26.0-34.0); Mean Corpuscular HGB Conc 30.7 g/dL (31.5-36.5); Mean Corpuscular Volume 81 fL (80-100); Mean Platelet Volume 8.8 fL (9.1-12.4); Platelet Count 318 K/mm3 (150-400); RDW Coefficient Variation 16.3 % (11.7-14.2); RDW Standard Deviation 48.3 fL (35.1-46.3); Red Blood Cell Count 3.53 M/mm3 (4.30-5.90); White Blood Cell Count 5.97 K/mm3 (4.00-11.30)
[2024-01-28 05:46] LABS: Bun/Creatinine Ratio 16.9 (12.0-20.0); Calcium, Blood 7.7 mg/dL (8.5-10.1); Creatinine, Blood 0.77 mg/dL (0.60-1.20); Potassium, Blood 3.4 mmol/L (3.5-5.5)
--- NOTE | 2024-01-28 06:31 | NUR ---
NG OUTPUT ON THIS SHIFT: 500ML. AMOUNT INFUSED D5NS 640MLS.
[2024-01-28 07:16] VITALS: BP 105/71
[2024-01-28 12:45] VITALS: BP 122/69
[2024-01-28 15:04] VITALS: BP 124/74
[2024-01-28] MEDS ORDERED: Potassium Chl 20MEQ/Water100ML 100 ML IV STA (18:14)
--- NOTE | 2024-01-28 18:39 | NUR ---
SHIFT SUMMARY PT HAD SMALL BOWEL FOLLOW THROUGH TODAY. DR. GONGORA DCED NGT AFTER THE RESULTS OF THIS AND CLEAR LIQUID STARTED. NGT REMOVED AT 1700. PT TOLERATING SMALL AMOUNT OF CLEAR LIQUIDS AT THIS TIME. MULITIPLE LOOSE STOOLS TODAY. BROWN LIQUID IN COLOR/CONSISTANCY. PT MEDICATED FOR PAIN ONCE THIS SHIFT WITH FENTANYL. PT USING BSC MOST THE AFTERNOON FOR TOIILETING DUE TO FATIGUE. SHOWERED THIS AM WITH MINIMAL HELP. POSSIBLE PLAN FOR SURGERY SUNDAY PER DR. GONGORA. PT CURRENTLY RUNNING AFIB AT 101. HR UP TO THE ONCE 150S AT TIMES. USUALLY AROUND TIME FOR SCHEDULED METOPROLOL. NO OTHER ACUTE CHANGES IN ASSESSMENT AT THIS TIME. VS REVIEWED. CALL LIGHT IN REACH. DENIES OTHER NEEDS AT THIS TIME.
[2024-01-28 19:37] VITALS: BP 103/75
[2024-01-28 23:49] VITALS: BP 112/75
[2024-01-29] VITALS (7 sets, daily range): BP systolic 109–126; BP diastolic 66–82
--- NOTE | 2024-01-29 05:13 | NUR ---
SUMMARY NO ACUTE CHANGES OVERNIGHT. SCANT AMOUNT OF SENIA RED BLOOD IN STOOL. PT STATES HE HAS HEMMOROIDS, WILL INFORM DAY SHIFT RN. IV FLUIDS AND ANTIBIOTICS CONTINUED OVERNIGHT. PT HAS LARGE AMOUNTS OF SALIVA, PER PT FROM NG TUBE. SUCTION SET UP AT BEDSIDE. PT ABLE TO USE HIMSELF. SBA TO BSC. AFIB TREATED PER EMAR. PT HAS TOLORATED CLEAR LIQUIDS THIS SHIFT. ALERT AND ORIENTED X4, ABLE TO MAKE NEEDS KNOWN.
[2024-01-29 07:26] LABS: Bun/Creatinine Ratio 11.9 (12.0-20.0); Creatinine, Blood 0.76 mg/dL (0.60-1.20); Potassium, Blood 3.4 mmol/L (3.5-5.5)
[2024-01-29] MEDS ORDERED: Potassium Chl 20MEQ/Water100ML 100 ML IV STA (08:39)
[2024-01-29] MEDS ORDERED: CALCIUM GLUC IN NACL, ISO-OSM 50 ML IV ONE (08:40)
--- NOTE | 2024-01-29 17:41 | NUR ---
SHIFT SUMMARY PT TOLERATING CLEAR LIQUID DIET WELL. NO ABD PAIN OR NAUSEA REPORTED TODAY. PT SHOWERED AND UP TO RECLINER CHAIR FOR LUNCH TODAY. DR. GONGORA IN TO SEE THE PATIENT. PLAN FOR HERNIA REPAIR TOMORROW. PT TO BE NPO AT MIDNIGHT IN PREPARATION. NO OTHER ACUTE CHANGES IN ASSESSMENT AT THIS TIME. VS REVIEWED. CALL LIGHT IN REACH. DENIES OTHER NEEDS AT THIS TIME.
[2024-01-30] VITALS (20 sets, daily range): BP systolic 98–136; BP diastolic 68–99
--- NOTE | 2024-01-30 04:33 | NUR ---
SHIFT SUMMARY NPO AFTER MIDNIGHT. PT DENIES PAIN. D5NS INFUSING ORDERED 60MLS/HR. PT IS WEARING CPAP TONIGHT. TELE: A-FIB @99. METOPROLOL IV ADMINISTERED ORDERED. PT AWAITING FOR A SURGERY TIME THIS AM. BED AT THE LOWEST POSITION, CALL LIGHT WITHIN REACH. NO ACUTE EVENTS DURING THIS SHIFT.
[2024-01-30] MEDS ORDERED: CeFAZolin Sodium 2,000 MG in NS 100 ML IV SCH (06:00)
[2024-01-30] MEDS ORDERED: Lactated Ringer's 1,000 ML IV SCH (06:25)
[2024-01-30] MEDS ORDERED: NS 100 ML IV ONE (06:30)
[2024-01-30] MEDS ORDERED: CeFAZolin Sodium 2,000 MG VIAL ONE (06:30)
[2024-01-30] MEDS ORDERED: Lactated Ringer's 1,000 ML IV ONE (06:30)
[2024-01-30] MEDS ORDERED: Bupivacaine 0.5% HCl 5 MG/ML 30MLVIAL ONE (06:58)
--- NOTE | 2024-01-30 08:20 | NUR ---
REPORT RECIEVED FROM NIGHT RN. PT NOT IN THE ROOM. PER REPORT PT WAS TAKEN FOR SURGERY PRIOR TO SHIFT CHANGE. WILL ASSESS UPON RETURN TO THE UNIT.
--- NOTE | 2024-01-30 08:42 | NUR ---
RN TO BEDSIDE. PT STATES THAT HE HAS "A PAIN IN MY ASS!. ASSISTED PT TO REPOSITION TO RIGHT SIDE WITH PILLOW UNDER HIS LEFT BUTTOCK. PT STATES THAT IS "FINE" FOR NOW. DISCUSSED THE REASON FOR DELAY WITH PT. PT MADE AWARE THAT ANESTHESIA IS REQUESTING A SECOND OPINION. DR. MUÑOZ DISCUSSED HIS CONCERNS WITH DR. GONGORA AND LAURO CEBALLOS RN. DR. CASSIDY REVIEWING PT MEDICAL HISTORY/RECORDS TO EVALUATE WHETHER PT IS SAFE TO UNDERGO ANESTHESIA. AFTER EXPLAINING THIS TO PT. PT STATES "I DON'T KNOW WHAT ALL THAT HAS TO DO WITH ANYTHING. I HAD ANESTHESIA IN THE PAST FOR BOTH OF MY KNEES AND I WAS FINE." RN REMINDED PT THAT SAFETY IS OF UTMOST CONCERN AND THATWE ARE TRYING TO TAKE EVERY PRECAUTION TO KEEP HIM SAFE. PT APPEARS AGITATED REGARDING THE SITUATION. PT STEPHEN AND DAUGHTER UPDATED AND AT BEDSIDE.
[2024-01-30] MEDS ORDERED: propofoL 20 ML IV ONE (10:05)
[2024-01-30] MEDS ORDERED: levalbuterol HCL 1.25 MG/3 ML VIAL INH ONE (10:50)
--- NOTE | 2024-01-30 11:08 | NUR ---
ADMITTING NOTE PT A&OX4, BREATHING RA, NO COMLAINTS, CHRONIC BACK PAIN. Patient confirms NPO status and agrees with scheduled surgery. Pre-Op teaching done. Pt verbalizes understanding. FAMILY AT BEDSIDE. 1100 BREATHHING TREATMENT GIVEN, VSS/HR TACHY IN 110'S. LUNG SOUNDS MILDLY DIMINISHED BUT CLEAR POST BREATHING TREATMENT. PT REFUSED OFFER TO USE THE BATHROOM.
[2024-01-30] MEDS ORDERED: FentaNYL Citrate 50 MCG/ML 2 ML Injection ONE ×2 (11:16→13:09)
[2024-01-30] MEDS ORDERED: Ondansetron HCl 2 MG / ML 2ML Vial ONE (11:16)
[2024-01-30] MEDS ORDERED: Dexamethasone Sod Phos 10 MG/ML 1ML VIAL ONE (11:16)
[2024-01-30] MEDS ORDERED: Metoprolol Tartrate 5 ML IV ONE (12:02)
[2024-01-30] MEDS ORDERED: Sugammadex Sodium 200 MG/2ML SDV (100 MG/ML) ONE (12:21)
[2024-01-30] MEDS ORDERED: Ropivacaine 0.5% HCL/PF 5 MG/ML 30ML Vial ONE (12:43)
[2024-01-30] MEDS ORDERED: Midodrine 5 MG Tab PO PRN (17:00)
[2024-01-30] MEDS ORDERED: OxyCODONE 5 mg/Acetamin 325 mg TABLET PO PRN (17:00)
--- NOTE | 2024-01-30 20:10 | NUR ---
SHIFT SUMMARY- PT RETURNED FROM SURGERY AT APPROXIMATELY 1400 MEDICATED FOR PAIN WITH IV FENTANYL ONCE. CALLED DR YEPEZ PRIOR TO MEDICATING THE PT HAS NO PO MEDICATIONS. ORDER TO GIVE THE IV FENTANYL AND THEN SHE PLACED ORDERS FOR PO PAIN MEDS A LITTLE LATER. PT STATED NO NEED FOR PAIN MEDS AT THE TIME THIS RN DID FINAL ROUNDS, AT SHIFT CHANGE HE NOTED HIS PAIN WAS UP TO 6/10 NIGHT RN WILL MEDICATE WITH PRN PAIN MEDS. PT IN BED, CALL LIGHT IN REACH NO S&S OF DISTRESS NOTED.
[2024-01-30] MEDS ORDERED: Metoprolol Tartrate 50 MG Tab PO SCH (21:00)
[2024-01-30] MEDS ORDERED: Gabapentin 400 MG Cap PO SCH (21:00)
[2024-01-30] MEDS ORDERED: Docusate Sodium 100 MG Cap PO SCH (21:00)
[2024-01-31 02:15] VITALS: BP 105/75
--- NOTE | 2024-01-31 03:08 | NUR ---
SHIFT SUMMARY POST OP NOC SHIFT#1. MEDICATED ORDERED (SEE EMAR.) PT RESTING WITH CPAP T/O THIS SHIFT. REPORTS PAIN LEVEL 8/10. NAVAL INCISION DRESSING C/D/I. NO DRAINAGE NOTED. NO ACUTE EVENTS DURING THIS SHIFT. TELE: A-FIBIN THE 90'S. BED AT THE LOWEST POSITION, CALL LIGHT WITHIN REACH.
[2024-01-31 05:23] LABS: Albumin, Blood 2.4 g/dL (3.4-5.0); Anion Gap 11 mmol/L (3-11); Blood Urea Nitrogen 10 mg/dL (8-24); Bun/Creatinine Ratio 13.5 (12.0-20.0); CO2, Blood 23 mmol/L (21-32); Calcium, Blood 7.7 mg/dL (8.5-10.1); Chloride, Blood 108 mmol/L (98-108); Creatinine, Blood 0.74 mg/dL (0.60-1.20); Glomerular Filtration Rate 94 (60-); Glucose, Blood 150 mg/dL (70-99); Phosphorus, Blood 3.6 mg/dL (2.5-4.9); Potassium, Blood 4.2 mmol/L (3.5-5.5); Sodium, Blood 138 mmol/L (136-145)
[2024-01-31] MEDS ORDERED: Pantoprazole Sodium 40 MG Tab PO SCH (06:00)
[2024-01-31 07:34] VITALS: BP 101/74
[2024-01-31] MEDS ORDERED: CALCIUM GLUC IN NACL, ISO-OSM 100 ML IV ONE (08:55)
[2024-01-31] MEDS ORDERED: Atorvastatin 10 MG Tab PO SCH (09:00)
[2024-01-31 09:41] VITALS: BP 94/70
[2024-01-31 11:14] VITALS: BP 109/82
[2024-01-31 13:49] VITALS: BP 126/79
--- NOTE | 2024-01-31 13:58 | NUR ---
PT WAS STTN BY PT/OT- PER VERBAL REPORT FROM BOTH PT AND OT THE RECOMENDATION WILL BE HOME WITH HOME HEALTH.
[2024-01-31 15:57] VITALS: BP 103/69
[2024-01-31] MEDS ORDERED: ERGO400 PO (16:30)
[2024-01-31] MEDS ORDERED: DOCU100 PO (16:30)
[2024-01-31] MEDS ORDERED: Percocet 5-3251 EACH PO (16:31)
--- NOTE | 2024-01-31 17:34 | NUR ---
DISCHARGE NOTE- PT WAS GIVEN VERBAL AND WRITTEN DISCHARGE INSTRUCTIONS AND ACKNOWLEDGED UNDERSTANDING OF THEM. PT IV'S AND TELE DC'D PRIOR TO DISCHARGE. PT ESCORTED OUT VIA WC BY THE MONOTYPIST. NO S&S OF DISTRESS NOTED AT THE TIME OF DISCHARGE.
== END 2024-01-31 16:55 | disposition home health service (06) | DRG 353 ==
LOC: ER 11:58 → MEDS 11:59
PROVIDERS: Emergency Medicine; Internal Medicine; Physician Assistant; Surgery; ADMIT Family Medicine
PROC: 5A09357 Assistance with Respiratory Ventilation, Less than 24 Consecutive Hours, Continuous Positive Airway Pressure (ICD-10-PCS; 2024-01-25)
PROC: 0D9670Z Drainage of Stomach with Drainage Device, Via Natural or Artificial Opening (ICD-10-PCS; 2024-01-26)
PROC: 0WUF4JZ Supplement Abdominal Wall with Synthetic Substitute, Percutaneous Endoscopic Approach (ICD-10-PCS; principal; 2024-01-30 07:30)
DX: K42.0 Umbilical hernia with obstruction, without gangrene (principal); K25.4 Chronic or unspecified gastric ulcer with hemorrhage; E87.20 Acidosis, unspecified; I50.32 Chronic diastolic (congestive) heart failure; G47.33 Obstructive sleep apnea (adult) (pediatric); I48.91 Unspecified atrial fibrillation; I95.89 Other hypotension; E78.5 Hyperlipidemia, unspecified; G62.9 Polyneuropathy, unspecified; K43.9 Ventral hernia without obstruction or gangrene; I11.0 Hypertensive heart disease with heart failure; D64.9 Anemia, unspecified; R54 Age-related physical debility; D75.839 Thrombocytosis, unspecified; E87.6 Hypokalemia; E83.51 Hypocalcemia; Z79.01 Long term (current) use of anticoagulants; Z87.891 Personal history of nicotine dependence
CPT/HCPCS: 36415; 71045; 74177; 74250; 80048; 80053; 80069; 82330; 83605; 83690; 83880; 85025; 85027; 85610; 85730; 86850; 86900; 86901; 93306; 94660; 94762; 96374-59; 96375; 96376; 97116; 97161; 97165; 97535; 99285-25; A9270; C1781; G0378; J0612; J0690; J1100; J2270; J2405; J2470; J2704; J2795; J3010; J3480; J7042; J7050; J7120; J7614; Q9967

== ENCOUNTER 2024-03-14 06:53 | Day surgery (SDC) | payer OTHER ==
[~2024-03-14] VITALS: Ht 182.9 cm; Wt 97.9 kg
[~2024-03-14 06:53] MED LIST changes: +CEPACOL THROAT1 EAC1 MM; +DOCU100 PO; +DOCUZEN 8.6-501 EACH PO; +ERGO400 PO; +JARDIANCE10 MG PO; +Lactated Ringer's 1,000 ML IV SCH; +METO25ER PO; +Percocet 5-3251 EACH PO; +SUCR1 PO
[2024-03-14 07:32] VITALS: BP 98/63
--- NOTE | 2024-03-14 07:36 | NUR ---
Wheelchaired into Day Surgery. History, Chart, Medications and Allergies reviewed before start of procedure. Pre-Op teaching done. Pt verbalizes understanding. Patient States Post-Procedure ride home has been arranged.
--- NOTE | 2024-03-14 08:36 | NUR ---
03/14/24 0836 Neetu Brunner WITH [facility]; SEE ANESTHESIA RECORDS.
[2024-03-14] MEDS ORDERED: propofoL 20 ML IV ONE (08:46)
[2024-03-14 08:47] LABS: BASOPHILS ABSOLUTE AUTO 0.06 K/mm3 (0.00-0.23); BASOPHILS PERCENT AUTO 1 % (0-2); EOSINOPHILS ABSOLUTE AUTO 0.46 K/mm3 (0.00-0.68); EOSINOPHILS PERCENT AUTO 6 % (0-6); Hematocrit 29.3 % (37.0-53.0); Hemoglobin 8.8 g/dL (13.5-17.5); IMMATURE GRAN ABSOLUTE AUTO 0.03 K/mm3 (0.00-0.10); IMMATURE GRAN PERCENT AUTO 0 % (0-1); LYMPHOCYTES PERCENT AUTO 20 % (21-46); MONOCYTES ABSOLUTE AUTO 0.58 K/mm3 (0.16-1.47); MONOCYTES PERCENT AUTO 8 % (4-13); Mean Corpuscular HGB 22.2 pg (26.0-34.0); Mean Corpuscular Volume 74 fL (80-100); Mean Platelet Volume 8.6 fL (9.1-12.4); NEUTROPHILS ABSOLUTE AUTO 5.04 K/mm3 (1.96-9.15); NEUTROPHILS PERCENT AUTO 66 % (41-73); Platelet Count 366 K/mm3 (150-400); RDW Coefficient Variation 17.1 % (11.7-14.2); RDW Standard Deviation 45.2 fL (35.1-46.3); Red Blood Cell Count 3.97 M/mm3 (4.30-5.90); White Blood Cell Count 7.67 K/mm3 (4.00-11.30)
[2024-03-14 09:15] VITALS: BP 101/77
[2024-03-14 09:20] VITALS: BP 109/87
[2024-03-14 09:30] VITALS: BP 97/76
[2024-03-14 09:44] VITALS: BP 102/73
--- NOTE | 2024-03-14 09:51 | NUR ---
DISCHARGE NOTE PT A&OX4, BREATHING RA, TOLERATING PO FLUIDS, NO COMPLAINTS. Discharge instructions reviewed with patient. Patient verbalizes understanding. Copy given to patient to take home.PT DRESSED INDEPENDENTLY, TRANSFERRED TO INDEPENDENTLY. Discharged via wheelchair to private car for ride home.
== END 2024-03-14 09:50 | disposition home or self-care (01) ==
LOC: ORSCMMR 06:53 → ORD 08:30 → ORSCMMR 08:30 → ORD 09:30 → ORSCMMR 09:30
PROVIDERS: Surgery
PROC: 0DB98ZX Excision of Duodenum, Via Natural or Artificial Opening Endoscopic, Diagnostic (ICD-10-PCS; principal; 2024-03-14 08:30)
PROC: 0DB68ZX Excision of Stomach, Via Natural or Artificial Opening Endoscopic, Diagnostic (ICD-10-PCS; principal; 2024-03-14 08:30)
DX: Z87.11 Personal history of peptic ulcer disease (principal); D64.9 Anemia, unspecified; K62.5 Hemorrhage of anus and rectum; E85.9 Amyloidosis, unspecified; I48.91 Unspecified atrial fibrillation; K57.30 Diverticulosis of large intestine without perforation or abscess without bleeding; G47.33 Obstructive sleep apnea (adult) (pediatric); Z87.891 Personal history of nicotine dependence; Z79.01 Long term (current) use of anticoagulants; Z79.84 Long term (current) use of oral hypoglycemic drugs; Z79.899 Other long term (current) drug therapy
CPT/HCPCS: 85025; 88305; 88313; 88342; J2704; J7120

== ENCOUNTER → 2024-06-17 | Outpatient (CLI) | payer OTHER ==
[~2024-06-17] MED LIST changes: +DARZALEX100 MG/51 IV; +FERSU300 PO; +FINA5 PO; -Lactated Ringer's 1,000 ML IV SCH; +SPIR50 PO
[2024-06-17 11:27] LABS: BASOPHILS ABSOLUTE AUTO 0.03 K/mm3 (0.00-0.23); BASOPHILS PERCENT AUTO 1 % (0-2); EOSINOPHILS ABSOLUTE AUTO 0.18 K/mm3 (0.00-0.68); EOSINOPHILS PERCENT AUTO 7 % (0-6); Hematocrit 34.7 % (37.0-53.0); Hemoglobin 10.3 g/dL (13.5-17.5); IMMATURE GRAN PERCENT AUTO 0 % (0-1); LYMPHOCYTES ABSOLUTE AUTO 1.07 K/mm3 (0.84-5.20); LYMPHOCYTES PERCENT AUTO 41 % (21-46); MONOCYTES ABSOLUTE AUTO 0.59 K/mm3 (0.16-1.47); MONOCYTES PERCENT AUTO 23 % (4-13); Mean Corpuscular HGB 23.1 pg (26.0-34.0); Mean Corpuscular HGB Conc 29.7 g/dL (31.5-36.5); Mean Corpuscular Volume 78 fL (80-100); NEUTROPHILS ABSOLUTE AUTO 0.74 K/mm3 (1.96-9.15); NEUTROPHILS PERCENT AUTO 28 % (41-73); Platelet Count 356 K/mm3 (150-400); RDW Coefficient Variation 25.8 % (11.7-14.2); RDW Standard Deviation 71.3 fL (35.1-46.3); Red Blood Cell Count 4.46 M/mm3 (4.30-5.90); White Blood Cell Count 2.61 K/mm3 (4.00-11.30)
[2024-06-17 12:29] LABS: Albumin, Blood 2.7 g/dL (3.4-5.0); Albumin/Globulin Ratio 0.8 (0.8-1.8); Bilirubin, Total 0.5 mg/dL (0.1-1.0); Bun/Creatinine Ratio 23.6 (12.0-20.0); Calcium, Blood 8.6 mg/dL (8.5-10.1); Creatinine, Blood 0.89 mg/dL (0.60-1.20); Globulin, Blood 3.6 g/dL (2.2-4.0); Potassium, Blood 3.7 mmol/L (3.5-5.5); Total Protein, Blood 6.3 g/dL (6.4-8.2)
== END ==
LOC: LAB 11:23 → LAB SHORT 11:23
PROVIDERS: Internal Medicine Hematology & Oncology
DX: E85.89 Other amyloidosis (principal)
CPT/HCPCS: 80053; 85025

== ENCOUNTER 2024-06-20 15:15 | Inpatient (IN) | payer OTHER ==
[~2024-06-20] VITALS: Ht 188 cm; Wt 93.0 kg
[2024-06-20] VITALS (23 sets, daily range): BP systolic 48–105; BP diastolic 28–62
[~2024-06-20 15:15] MED LIST changes: -DARZALEX100 MG/51 IV; +EPINEPhrine HCl 0.1 MG/ML 10ML SYR IV ONE; +Etomidate 2MG / ML 10ML Vial IV ONE; -FERSU300 PO; -FINA5 PO; +Midazolam HCl 1MG / ML 2ML Vial IV ONE; +Rocuronium Bromide 10 MG/ML 5ML Injection IV ONE; -SPIR50 PO
[2024-06-20 16:46] LABS: CORONAVIRUS COVID-19 AG Negative (NEGATIVE); INFLUENZA A AG Negative (NEGATIVE); INFLUENZA B AG Negative (NEGATIVE)
[2024-06-20 16:47] LABS: Mean Corpuscular HGB Conc 31.3 g/dL (31.5-36.5); Mean Corpuscular Volume 74 fL (80-100); Mean Platelet Volume 9.5 fL (9.1-12.4); Platelet Count 250 K/mm3 (150-400); RDW Coefficient Variation 25.2 % (11.7-14.2); RDW Standard Deviation 65.1 fL (35.1-46.3); Red Blood Cell Count 4.35 M/mm3 (4.30-5.90); White Blood Cell Count 1.06 K/mm3 (4.00-11.30)
[2024-06-20] MEDS ORDERED: Diltiazem HCl 5 MG / ML 5ML Vial IV ONE ×2 (17:05→18:55)
[2024-06-20] MEDS ORDERED: Ondansetron HCl 2 MG / ML 2ML Vial IV ONE (17:05)
[2024-06-20 17:09] LABS: Albumin, Blood 2.7 g/dL (3.4-5.0); Albumin/Globulin Ratio 0.8 (0.8-1.8); Bilirubin, Total 1.1 mg/dL (0.1-1.0); Bun/Creatinine Ratio 37.1 (12.0-20.0); Calcium, Blood 8.5 mg/dL (8.5-10.1); Creatinine, Blood 0.7 mg/dL (0.60-1.20); Globulin, Blood 3.5 g/dL (2.2-4.0); Potassium, Blood 3.6 mmol/L (3.5-5.5); Total Protein, Blood 6.2 g/dL (6.4-8.2)
[2024-06-20] MEDS ORDERED: Morphine Sulfate 4 MG/1 ML Injection IV ONE (17:10)
[2024-06-20 17:43] LABS: BAND PERCENT MAN 6 % (0-8); BASOPHILS PERCENT MAN 0 % (0-2); EOSINOPHILS PERCENT MAN 0 % (0-6); LYMPHOCYTES % ATYPICAL MANUAL 2 % (0-0); LYMPHOCYTES PERCENT MAN 36 % (21-46); MONOCYTES ABSOLUTE MAN 0.21 K/mm3 (0.16-1.47); MONOCYTES PERCENT MAN 20 % (4-13); NEUTROPHILS ABSOLUTE MAN 0.44 K/mm3 (1.96-9.15); SEG NEUTROPHILS PERCENT MAN 36 % (41-73); TOTAL CELLS COUNTED 50
[2024-06-20 18:10] LABS: Influenza A, PCR NEGATIVE (NEGATIVE); Influenza B, PCR NEGATIVE (NEGATIVE); Resp Syncytial Virus, PCR NEGATIVE (NEGATIVE); SARS-Cov-2 (COVID-19) PCR, MMC NEGATIVE (NEGATIVE)
[2024-06-20] MEDS ORDERED: HYDROmorphone HCl/Pf 1MG SYR IV ONE (18:55)
[2024-06-20 19:31] LABS: Source, Urine Clean Catch
[2024-06-20 19:39] LABS: Appearance, Urine Clear (Clear); Bilirubin, Urine Neg (Neg); Blood, Urine Neg (Neg); Color, Urine Yellow (P-Yellow); Glucose Qualitative, Urine 3+ (Neg); Ketones, Urine Neg (Neg); Leukocyte Esterase, Urine Neg (Neg); Nitrite, Urine Neg (Neg); Protein, Urine 1+ (Neg); Specific Gravity, Urine 1.005 (1.003-1.022); Urobilinogen, Urine 1+ (Normal)
[2024-06-20] MEDS ORDERED: Ondansetron HCl 2 MG / ML 2ML Vial IV PRN (19:45)
[2024-06-20] MEDS ORDERED: FentaNYL Citrate 50 MCG/ML 2 ML Injection IV PRN (19:50)
[2024-06-20] MEDS ORDERED: Furosemide 10 MG/ML 4ML Vial IV SCH (20:00)
[2024-06-20 20:24] LABS: International Normalized Ratio 0.91; Prothrombin Time Results 9.8 Sec (9.7-11.5)
[2024-06-20] MEDS ORDERED: Dose Adjust by Pharmacy XX STA (20:31)
[2024-06-20] MEDS ORDERED: Heparin Sodium,Porcine/0.5 NS 500 ML IV SCH (20:35)
[2024-06-20] MEDS ORDERED: Piperacillin/Tazobactam Sod 4.5 GM in NS 100 ML IV SCH (21:00)
--- NOTE | 2024-06-20 21:15 | NUR ---
NOTIFIED JUAN PRACTICE PHYSICIAN OF PT PAIN LEVEL AND FIRM ABDOMEN. ALSO UPDATED HIM ON PT HEART RATE AND BP THAT IS TRENDING ON THE LOW SIDE OF NORMAL (MAINTAINING MAP OF 65 AT THIS TIME). WILL MEDICATE PT PER EMAR AND NOTIFY PROVIDER OF ANY CHANGES.
[2024-06-20] MEDS ORDERED: Phenylephrine HCl in 0.9% NaCl 250 ML IV SCH (21:40)
[2024-06-20] MEDS ORDERED: NS 250 ML IV PRN (21:45)
--- NOTE | 2024-06-20 21:45 | NUR ---
JUAN ARCHITECTURAL DRAFTSMAN NOTIFIED PT HYPOTENSIVE. ORDERS GIVEN-STATED HE WOULD NOTIFY DR MILLER WELL.
--- NOTE | 2024-06-20 22:00 | NUR ---
DR MILLER AT BEDSIDE TO EVALUATE PATIENT AND PLACE CVL.
[2024-06-20] MEDS ORDERED: NS 1,000 ML IV ONE (22:47)
[2024-06-20] MEDS ORDERED: Vasopressin 20 UNITS in NS 100 ML IV SCH (22:50)
[2024-06-20] MEDS ORDERED: NS 1,000 ML IV SCH (22:55)
[2024-06-20] MEDS ORDERED: NS 500 ML IV ONE (22:55)
[2024-06-20] MEDS ORDERED: MethylPREDNISolone Sod Succ 125 MG Vial ONE (23:10)
--- NOTE | 2024-06-20 23:15 | NUR ---
PT INTUBATED-REFER TO RT DOCUMENTATION FOR FUTHER DETAILS DR MILLER REMAINS AT BEDSIDE
[2024-06-20] MEDS ORDERED: MethylPREDNISolone Sod Succ 125 MG Vial IV ONE (23:30)
[2024-06-20] MEDS ORDERED: Vancomycin HCL 1,250 MG in NS 250 ML IV ONE (23:45)
[2024-06-20] MEDS ORDERED: Midazolam HCL 50 MG in NS 40 ML IV PRN (23:50)
[2024-06-21] VITALS (56 sets, daily range): BP systolic 66–107; BP diastolic 38–83
[2024-06-21] MEDS ORDERED: Hydrocortisone Sod Succinate 100 MG Vial IV SCH
[2024-06-21] MEDS ORDERED: Vancomycin HCL 2,000 MG in NS 500 ML IV ONE (00:04)
[2024-06-21] MEDS ORDERED: Albumin (Human) 25gm/100ml 100 ML IV ONE (00:35)
[2024-06-21 00:51] LABS: International Normalized Ratio 1.2; Prothrombin Time Results 12.7 Sec (9.7-11.5)
[2024-06-21] MEDS ORDERED: Artificial Tear Opth Oint 3.5 GM BOTHEYES PRN (01:35)
--- NOTE | 2024-06-21 03:15 | NUR ---
PT HAS BEEN INTUBATED W/CVL PLACED. PRESSORS INFUSING, SEE EMAR. PT SON IS AT BEDSIDE. HE CONTINUES TO BE IN AFIB RVR. AFEBRILE. PT IS SEDATED W/VERSED. MAKI CATH INTACT PATENT AND DRAINING YELLOW URINE TO GRAVITY. WAS UPDATED BY DORITA CHARGE NURSE ON PT CRITICAL CONDITION. WILL CONTINUE TO MONITOR.
[2024-06-21 04:22] LABS: Hematocrit 34.8 % (37.0-53.0); Hemoglobin 10.2 g/dL (13.5-17.5); Mean Corpuscular HGB 23.1 pg (26.0-34.0); Mean Corpuscular HGB Conc 29.3 g/dL (31.5-36.5); Mean Platelet Volume 9.3 fL (9.1-12.4); NRBC ABSOLUTE 0.07 K/mm3 (0.00-0.02); NRBC Auto 5.1 /100 WBC (0.0-0.2); Platelet Count 259 K/mm3 (150-400); RDW Coefficient Variation 25.5 % (11.7-14.2); Red Blood Cell Count 4.42 M/mm3 (4.30-5.90); White Blood Cell Count 1.38 K/mm3 (4.00-11.30)
--- NOTE | 2024-06-21 04:24 | NUR ---
DR MILLER AT PATIENT BEDSIDE. DISCUSSED PT CONDITION W/SON. UPDATED MD ON PT CONDITION
[2024-06-21 04:41] LABS: Mean Corpuscular Volume 79 fL (80-100)
[2024-06-21 04:48] LABS: Albumin, Blood 2.5 g/dL (3.4-5.0); Albumin/Globulin Ratio 0.8 (0.8-1.8); Bilirubin, Total 2.2 mg/dL (0.1-1.0); Bun/Creatinine Ratio 23.2 (12.0-20.0); Calcium, Blood 7.9 mg/dL (8.5-10.1); Creatinine, Blood 1.25 mg/dL (0.60-1.20); Globulin, Blood 3.1 g/dL (2.2-4.0); Potassium, Blood 3.6 mmol/L (3.5-5.5); Total Protein, Blood 5.6 g/dL (6.4-8.2)
[2024-06-21 04:53] LABS: BAND PERCENT MAN 16 % (0-8); BASOPHILS PERCENT MAN 0 % (0-2); EOSINOPHILS PERCENT MAN 0 % (0-6); LYMPHOCYTES ABSOLUTE MAN 0.27 K/mm3 (0.84-5.20); LYMPHOCYTES PERCENT MAN 20 % (21-46); METAMYELOCYTE ABSOLUTE MAN 0.05 K/mm3 (0.00-0.00); METAMYELOCYTE PERCENT MAN 4 % (0-0); MONOCYTES ABSOLUTE MAN 0.44 K/mm3 (0.16-1.47); MONOCYTES PERCENT MAN 32 % (4-13); SEG NEUTROPHILS PERCENT MAN 28 % (41-73); TOTAL CELLS COUNTED 50
--- NOTE | 2024-06-21 05:10 | NUR ---
SHIFT SUMMERY PT REMAINTS INTUBATED VIA ETT, INTACT AND PATENT TO THE VENT. VERSED, LEVOPHED, NEOSYNEPHRINE, VASOPRESSIN INFUSING W/TITRATIONS FOR EFFECTS-SEE [facility]. OG TUBE TO ILWS, BILE DRAINAGE. MAKI CATH INTACT PATENT AND DRAINING TO GRAVITY. PT REMAINS IN AFIB RVR ON THE HANDLE MACHINE OPERATOR. SON REMAINS AT BEDSIDE.
--- NOTE | 2024-06-21 05:25 | NUR ---
DR MILLER NOTIFIED OF ALL CRITICAL CARE RESULTS THIS SHIFT
[2024-06-21 05:45] LABS: PCO2 Arterial 33.9 mmHg (35-45); PO2 Arterial 381 mmHg (80-100); pH Blood Arterial 7.38 (7.35-7.45)
[2024-06-21] MEDS ORDERED: Pantoprazole Sodium 40 MG Injection IV SCH (09:00)
[2024-06-21 09:14] LABS: PCO2 Arterial 33.6 mmHg (35-45); PO2 Arterial 215 mmHg (80-100); pH Blood Arterial 7.36 (7.35-7.45)
[2024-06-21] MEDS ORDERED: SPIR50 PO (09:45)
[2024-06-21] MEDS ORDERED: FERSU300 PO (09:46)
[2024-06-21] MEDS ORDERED: FINA5 PO (09:47)
[2024-06-21] MEDS ORDERED: DARZALEX100 MG/51 IV (09:48)
[2024-06-21] MEDS ORDERED: Calcium Chloride 10% 1,000 MG in NS 50 ML IV ONE (10:10)
[2024-06-21] MEDS ORDERED: NS 500 ML IV SCH (10:20)
--- NOTE | 2024-06-21 11:00 | NUR ---
DR CARDOZA FAMILY UPDATE PT SPOUSE AT BEDSIDE, DR CARDOZA AT BEDSIDE. DR CARDOZA HAD EXTENSIVE DISCUSSION ABOUT PT CONDITION AND PLAN OF CARE. PT FAMILY ELECTED TO MAKE PT A DNR AT THIS TIME, BUT CONTINUE FULL TREATMENT, INCLUDING PLACING AN ART LINE AND ADDITIONAL PRESSOR SUPPORT. SEE FLOWSHEET FOR GTT'S.
[2024-06-21] MEDS ORDERED: Vancomycin HCL 1,250 MG in NS 250 ML IV SCH (12:00)
[2024-06-21] MEDS ORDERED: Vancomycin HCL 750 MG in NS 250 ML IV SCH (12:00)
[2024-06-21] MEDS ORDERED: dexmedeTOMIDine 100 ML IV SCH (13:00)
[2024-06-21 13:06] LABS: PCO2 Arterial 33.4 mmHg (35-45); PO2 Arterial 183 mmHg (80-100); pH Blood Arterial 7.35 (7.35-7.45)
[2024-06-21] MEDS ORDERED: Dose Adjust by Pharmacy XX STA ×2 (14:26→22:29)
[2024-06-21] MEDS ORDERED: Heparin Sodium,Porcine/0.5 NS 500 ML IV SCH (14:30)
[2024-06-21 17:54] LABS: PCO2 Arterial 32.8 mmHg (35-45); PO2 Arterial 169 mmHg (80-100); pH Blood Arterial 7.35 (7.35-7.45)
--- NOTE | 2024-06-21 18:04 | NUR ---
PATIENT REMAINS INTUBATED AND SEDATED. D/C MIDAZOLAM AND STARTED PRECEDEX. PT TOLERATING WELL. SUSPECTED AIR LEAK FROM ET CUFF 1-2ML AIR PLACED INTO CUFF INTERMITTENTLY TODAY, RT AND DR CARDOZA AWARE. PATIENT REMAINED IN AFIB WITH HR 110S-150S AND PROFOUNDLY HYPOTENSIVE DESPITE 4 VASOPRESSORS. SEE FLOWSHEET FOR GTT TITRATIONS. ART LINE WAS PLACED BY DR CARDOZA APPROX 1115. EPI ADDED AND TITRATED. HEPARIN AND AMIO ADDED THIS AFTERNOON WELL. ECHO AND CXR COMPLETED TODAY. MANY FAMILY MEMBERS INTO VISIT TODAY. CL TO RIJ C/D/I. OGT REMAINS TO LIS, MINIMAL OUTPUT NOTED. MAKI IN PLACE WITH SMALL AMOUNT OF DARK YELLOW OUTPUT NOTED. PT WITH COOL AND DUSKY EXTREMITIES AND MULTIPLE AREAS OF PURPURA. PT DOES NOT WITHDRAW EXTREMITIES TO NOXIOUS STIMULI. NO COUGH OR GAG NOTED WITH SUCTION. NO PURPOSEFUL MOVEMENTS NOTED. DR CARDOZA HAD MULTIPLE EXTENSIVE DISCUSSIONS WITH FAMILY ABOUT PLAN OF CARE. PT REMAINS DNR STATUS. HIS ABDOMEN REMAINS DISTENDED/FIRM AND HYPOACTIVE.
--- NOTE | 2024-06-21 21:18 | NUR ---
ASSUMED CARE AT 1900 PATIENT IS INTUBATED, PRECEDEX INFUSING AT START OF SHIFT, TITRATED OFF AND PATIENT REMAINS UNRESPONSIVE. VENT AC PC R 18, Pi 14, PEEP 10, FI02 40%, RR 21. LS COARSE. HR A.FIB 145. BP HYPOTENSIVE WITH VASO, BECKI, LEVO, AND EPI INFUSING, SEE FLOWSHEET FOR TITRATIONS. MAP RANGING FROM 55-60 VIA ART LINE. OG TO LIS WITH GREEN BILE OUT. MAKI PATENT AND DRAINING TO GRAVITY. MINIMAL REPOSITIONING DUE TO BP. ABDOMEN FIRM AND BOWEL TONES HYPOACTIVE. EXTREMITIES MOTTLED. DAUGHTER ST BEDSIDE WITH PATIENT
[2024-06-21] MEDS ORDERED: Cetylpyridinium Chloride 1 EA MISC MT SCH (21:50)
[2024-06-21 22:40] LABS: Hematocrit 34.4 % (37.0-53.0); Hemoglobin 10.6 g/dL (13.5-17.5); Mean Corpuscular HGB Conc 30.8 g/dL (31.5-36.5); Mean Corpuscular Volume 75 fL (80-100); Mean Platelet Volume 9.4 fL (9.1-12.4); Platelet Count 202 K/mm3 (150-400); RDW Coefficient Variation 25.5 % (11.7-14.2); Red Blood Cell Count 4.61 M/mm3 (4.30-5.90); White Blood Cell Count 1.38 K/mm3 (4.00-11.30)
[2024-06-21 23:13] LABS: BAND PERCENT MAN 6 % (0-8); BASOPHILS PERCENT MAN 0 % (0-2); EOSINOPHILS PERCENT MAN 0 % (0-6); LYMPHOCYTES % ATYPICAL MANUAL 4 % (0-0); LYMPHOCYTES ABSOLUTE MAN 0.49 K/mm3 (0.84-5.20); LYMPHOCYTES PERCENT MAN 32 % (21-46); MONOCYTES ABSOLUTE MAN 0.52 K/mm3 (0.16-1.47); MONOCYTES PERCENT MAN 38 % (4-13); MYELOCYTE ABSOLUTE MAN 0.02 K/mm3 (0.00-0.00); MYELOCYTE PERCENT MAN 2 % (0-0); NEUTROPHILS ABSOLUTE MAN 0.33 K/mm3 (1.96-9.15); SEG NEUTROPHILS PERCENT MAN 18 % (41-73); TOTAL CELLS COUNTED 50
[2024-06-22] VITALS (10 sets, daily range): BP systolic 65–88; BP diastolic 40–62
[2024-06-22] MEDS ORDERED: Hydrogen Peroxide 1.5 % Solution MT SCH
[2024-06-22] MEDS ORDERED: EPINEPHRINE HCL IV SCH (00:15)
[2024-06-22] MEDS ORDERED: DEXTROSE 5% IV SCH (00:15)
[2024-06-22] MEDS ORDERED: Morphine Sulfate 10 MG/ML 1MLSYR IV PRN (04:30)
[2024-06-22] MEDS ORDERED: Atropine Sulfate 1% Opth Soln 2ML BTL SL PRN (04:30)
[2024-06-22] MEDS ORDERED: Morphine Sulfate 20 MG/1ML 1 ML Oral Syringe SL PRN (04:30)
[2024-06-22] MEDS ORDERED: HYDROmorphone HCl/Pf 1MG SYR IV PRN (04:30)
[2024-06-22] MEDS ORDERED: LORazepam 2 MG/ML 1ML Injection IV PRN (04:30)
--- NOTE | 2024-06-22 05:34 | NUR ---
PATIENT CONDITION DECLINED ON MAXIMUM AMOUNT OF VASOPRESSOR SUPPORT. DR. CARDOZA WAS NOTIFIED EARLIER IN THE SHIFT AND NO NEW ORDERS AND UNABLE TO ADD ANY MORE MEDICATIONS. FAMILY AWARE AND UNDERSTANDING. PATIENT CONTINUED TO DECLINE FAMILY MEMBERS CAME IN AND DECISION TO MAKE PATIENT COMFORT CARE. MEDICATION TUNRED OFF AND PATIENT TIME OF AT 0448. DR. MILLER NOTIFIED OF TOD. FAMILY TOOK BELONGING WITH THEM
[2024-06-22] MEDS ORDERED: FILGRASTIM-AYOW 300 MCG/0.5 ML SYRINGE SC SCH (12:00)
[2024-06-23] MEDS ORDERED: FILGRASTIM-AYOW 480 MCG/0.8 ML 0.8MLSYR SC SCH (12:00)
== END 2024-06-22 04:48 | DRG 871 ==
LOC: ER 15:15 → ICUE 20:18
PROVIDERS: Emergency Medicine; Internal Medicine Critical Care Medicine; Nurse Practitioner Acute Care; Physician Assistant; ADMIT Internal Medicine
PROC: 3E03329 Introduction of Other Anti-infective into Peripheral Vein, Percutaneous Approach (ICD-10-PCS; principal; 2024-06-20)
PROC: 5A1935Z Respiratory Ventilation, Less than 24 Consecutive Hours (ICD-10-PCS; 2024-06-20)
PROC: 02HV33Z Insertion of Infusion Device into Superior Vena Cava, Percutaneous Approach (ICD-10-PCS; 2024-06-20)
PROC: 3E033XZ Introduction of Vasopressor into Peripheral Vein, Percutaneous Approach (ICD-10-PCS; 2024-06-20)
PROC: 8E0ZXY6 Isolation (ICD-10-PCS; 2024-06-20)
PROC: 0BH17EZ Insertion of Endotracheal Airway into Trachea, Via Natural or Artificial Opening (ICD-10-PCS; 2024-06-21)
PROC: 0D9670Z Drainage of Stomach with Drainage Device, Via Natural or Artificial Opening (ICD-10-PCS; 2024-06-21)
PROC: 4A133R1 Monitoring of Arterial Saturation, Peripheral, Percutaneous Approach (ICD-10-PCS; 2024-06-21)
PROC: 03HY32Z Insertion of Monitoring Device into Upper Artery, Percutaneous Approach (ICD-10-PCS; 2024-06-21)
PROC: 4A133B1 Monitoring of Arterial Pressure, Peripheral, Percutaneous Approach (ICD-10-PCS; 2024-06-21)
PROC: 4A133J1 Monitoring of Arterial Pulse, Peripheral, Percutaneous Approach (ICD-10-PCS; 2024-06-21)
DX: A41.9 Sepsis, unspecified organism (principal); I50.33 Acute on chronic diastolic (congestive) heart failure; R65.21 Severe sepsis with septic shock; E85.9 Amyloidosis, unspecified; I48.20 Chronic atrial fibrillation, unspecified; E87.1 Hypo-osmolality and hyponatremia; Z66 Do not resuscitate; Z51.5 Encounter for palliative care; J84.10 Pulmonary fibrosis, unspecified; E78.5 Hyperlipidemia, unspecified; K27.9 Peptic ulcer, site unspecified, unspecified as acute or chronic, without hemorrhage or perforation; K21.9 Gastro-esophageal reflux disease without esophagitis; D70.1 Agranulocytosis secondary to cancer chemotherapy; K52.9 Noninfective gastroenteritis and colitis, unspecified; I11.0 Hypertensive heart disease with heart failure; Z96.60 Presence of unspecified orthopedic joint implant; M10.9 Gout, unspecified; N40.0 Benign prostatic hyperplasia without lower urinary tract symptoms; G47.33 Obstructive sleep apnea (adult) (pediatric); Z91.048 Other nonmedicinal substance allergy status; T45.1X5A Adverse effect of antineoplastic and immunosuppressive drugs, initial encounter; Z90.49 Acquired absence of other specified parts of digestive tract; Z98.890 Other specified postprocedural states; Z86.19 Personal history of other infectious and parasitic diseases; Z87.891 Personal history of nicotine dependence
CPT/HCPCS: 0241U; 31500; 36415; 36556; 36600; 36620; 51702; 71045; 71275; 74018; 74177; 80053; 82330; 82803; 82947; 83605; 83735; 83880; 84484; 85025; 85610; 85730; 87040; 87077; 87428-QW; 93005; 93010; 93306; 94002; 94003; 96374; 96375; 96376; 99285-25; A9270; C1751; J0171; J0282; J1171; J1644; J1720; J2250; J2270; J2371; J2405; J2470; J2543; J2919; J3010; J3370; J7030; J7040; J7050; J7060; P9047; Q5110; Q9967